=== PATIENT | male | born 1985 | race African-American/Black ===

== ENCOUNTER 2022-12-11 16:08 | Emergency (ER) | payer MEDICAID ==
[~2022-12-11] VITALS: Ht 180.3 cm; Wt 95.0 kg
[2022-12-11] MEDS ORDERED: SODIUM CHLORIDE 0.9% 1,000 ML IV ONE (17:15)
[2022-12-11] MEDS ORDERED: PANTOPRAZOLE SODIUM 40 MG/VIAL IV ONE (17:15)
[2022-12-11] MEDS ORDERED: ONDANSETRON HCL 4MG/2ML INJ IV ONE (18:00)
[2022-12-11 18:54] LABS: CLARITY URINE CLEAR (CLEAR); COLOR URINE YELLOW (YELLOW); KETONES URINE NEGATIVE (NEGATIVE); LEUKOCYTE ESTERASE URINE NEGATIVE (NEGATIVE); NITRITE URINE NEGATIVE (NEGATIVE); OCCULT BLOOD URINE NEGATIVE (NEGATIVE); PROTEIN URINE NEGATIVE (NEGATIVE); SPECIFIC GRAVITY URINE 1.007 (1.005-1.030); UROBILINOGEN URINE 0.2 E.U./dL (0.2-1.0)
[2022-12-11] MEDS ORDERED: GABAPENTIN 400MG CAPSULE PO NR (19:45)
[2022-12-11] MEDS ORDERED: DAPTOMYCIN IV SCH (20:00)
[2022-12-11] MEDS ORDERED: SODIUM CHLORIDE 0.9% IV SCH (20:00)
[2022-12-11] MEDS ORDERED: CEFTRIAXONE 2GM/50ML (ADDEASE) 50 ML IV ONE (20:00)
[2022-12-11 20:03] LABS: BASOPHILS % 0.2 % (0.0-2.0); EOSINOPHILS % 0.8 % (0.0-5.0); HEMATOCRIT. 25.7 % (42.0-52.0); HEMOGLOBIN. 8.5 g/dL (14.0-18.0); MEAN CORPUSCULAR HEMOGLOBIN 30.7 pg (28.0-32.0); MEAN CORPUSCULAR VOLUME 92.8 fL (80.0-94.0); MEAN PLATELET VOLUME 6.7 fl (7.4-10.4); MONOCYTES % 6.5 % (2.0-8.0); NEUTROPHILS % 72.5 % (40.0-76.0); PLATELET 271 x1000/uL (130-400); RED BLOOD CELL COUNT 2.77 mill/uL (4.7-6.1); RED CELL DISTRIBUTION WIDTH 14.3 % (11.6-14.6)
[2022-12-11 20:09] LABS: CHLORIDE 107 mEq/L (98-107)
[2022-12-11] MEDS ORDERED: CEFTRIAXONE 2,000 G in DEXTROSE 5% WATER 50 ML IV NR (20:15)
[2022-12-11] MEDS ORDERED: CEFTRIAXONE 2 G in DEXTROSE 5% WATER 50 ML IV NR (20:15)
[2022-12-11 20:17] LABS: ETHANOL BLOOD < 10 mg/dL (-10)
[2022-12-11] MEDS ORDERED: IOHEXOL-300 100 ML BOTTLE ONE (22:49)
[2022-12-11 22:59] VITALS: BP 101/59
[2022-12-17] MEDS ORDERED: PROT40 MT (12:36)
== END 2022-12-11 23:03 | disposition home or self-care (01) ==
LOC: EDBD → ER 16:08
DX: K65.1 Peritoneal abscess (principal); E11.9 Type 2 diabetes mellitus without complications; Z87.891 Personal history of nicotine dependence; F12.10 Cannabis abuse, uncomplicated
CPT/HCPCS: 36415; 74177; 80053; 80320; 81003; 83605; 83690; 85025; 87040; 96361; 96365; 96367; 96375; 99285; C9113; J0696; J0878; J2405; J7030; J7060; Q9967; G0480